=== PATIENT | male | born 1975 | race Hispanic/Latino ===

== ENCOUNTER 2018-05-03 12:26 | Emergency (ER) | payer OTHER ==
[2018-05-03] MEDS ORDERED: ONDANSETRON 4 MG/2 ML VIAL ONE (13:01)
[2018-05-03] MEDS ORDERED: MECLIZINE HCL 12.5 MG TAB ONE (13:01)
[2018-05-03 13:41] LABS: Absolute Lymphocytes (CBC) 1.7 K/uL (0.7-4.9); Absolute Monocytes 0.8 K/uL (0.1-1.3); Absolute Neutrophil 9.3 K/uL (1.8-8.0); Basophils % 0.5 % (0-1.3); Eosinophils % 0.2 % (0-4.4); Hematocrit 46.8 % (39.6-49.0); MCH 27.7 pg (27.0-35.0); MCV 85.5 fL (80-100); MPV 9.5 fL (7.6-11.3); Monocytes % 7.1 % (3.3-12.3); RBC Red Blood Cell Count 5.48 M/uL (4.33-5.43)
[2018-05-03 13:45] LABS: Protime INR 1.09
[2018-05-03 14:00] LABS: Albumin 4.4 g/dL (3.4-5.0); Bilirubin Direct 0.1 mg/dL (0-0.2); Bilirubin Total 0.8 mg/dL (0.2-1.0); Magnesium 2.2 mg/dL (1.8-2.4); Potassium 4.2 mmol/L (3.5-5.1); Protein, Total 8.7 g/dL (6.4-8.2)
--- NOTE | 2018-05-03 14:24 | RAD REPORT ---
EXAM DESCRIPTION: RAD - Chest Single View - 05/03/2018 2:09 pm CLINICAL HISTORY: dizziness;SOB Chest pain. COMPARISON: <Comparisons> FINDINGS: Portable technique limits examination quality. The lungs are grossly clear. The heart is normal in size. No displaced fractures. IMPRESSION: No acute intrathoracic process suspected.
[2018-05-03] MEDS ORDERED: NA CHLORIDE 0.9% 1,000 ML ONE (14:54)
--- NOTE | 2018-05-03 14:59 | EDPHYS ---
Physician Documentation [facility] Name: Skip Duckworth Age: 43 yrs Sex: Male : 1975 Arrival Date: 05/03/2018 Time: 12:28 Bed 16 Private MD: Out, [facility] ED Physician Orlando Acosta HPI: 05/03 12:51 This 43 yrs old Male presents to ER via Ambulatory with complaints of cp Breathing Difficulty. Historical: - Allergies: 12:35 No Known Allergies; lk1 - PMHx: 12:35 High Cholesterol; lk1 - PSHx: 12:35 Carpal Tunnel Repair; lk1 - Immunization history:: Adult Immunizations up to date. - Social history:: Smoking status: Patient/guardian denies using tobacco. - Ebola Screening: : No symptoms or risks identified at this time. ROS: 15:57 Constitutional: Negative for body aches, chills, fever, poor PO intake. cp 15:57 Eyes: Negative for injury, pain, redness, and discharge. cp 15:57 ENT: Negative for drainage from ear(s), ear pain, sore throat, difficulty swallowing, difficulty handling secretions. 15:57 Cardiovascular: Negative for chest pain, edema, palpitations. 15:57 Respiratory: Positive for shortness of breath, Negative for cough, wheezing. 15:57 Abdomen/GI: Negative for abdominal pain, vomiting, diarrhea, constipation, black/tarry stool, rectal bleeding. 15:57 Back: Negative for pain at rest, pain with movement, radiated pain. 15:57 Neuro: Positive for dizziness, Negative for altered mental status, headache, syncope, near syncope, weakness. 15:57 All other systems are negative. Exam: 13:08 Constitutional: The patient appears in no acute distress, alert, awake, cp non-diaphoretic, non-toxic, well developed, well nourished, uncomfortable. 13:08 Head/Face: Normocephalic, atraumatic. cp 13:08 Eyes: Periorbital structures: appear normal, Pupils: equal, round, and reactive to light and accomodation, Extraocular movements: intact throughout, Conjunctiva: normal, no exudate, no injection, Sclera: no appreciated abnormality, Lids and lashes: appear normal, bilaterally. 13:08 ENT: External ear(s): are unremarkable, Ear canal(s): are normal, clear, TM's: bulging, is not appreciated, bilaterally, dullness, bilaterally, erythema, is not appreciated, bilaterally, Nose: is normal, Mouth: Lips: moist, Oral mucosa: pink and intact, moist, Posterior pharynx: is normal, airway is patent, no erythema, no exudate. 13:08 Neck: ROM/movement: is normal, is supple, without pain, no range of motions limitations, no meningismus, no nuchal rigidity, Lymph nodes: no appreciated lymphadenopathy. 13:08 Chest/axilla: Inspection: normal, Palpation: is normal, no crepitus, no tenderness. 13:08 Cardiovascular: Rate: normal, Rhythm: regular, Pulses: Pulses are 2+ in right radial artery and left radial artery. Heart sounds: murmur, not appreciated, rub, not appreciated, gallop, not appreciated, Edema: is not appreciated, JVD: is not appreciated. 13:08 Respiratory: the patient does not display signs of respiratory distress, Respirations: normal, no use of accessory muscles, no retractions, no splinting, no tachypnea, Breath sounds: are clear throughout, no decreased breath sounds, no stridor, no wheezing. 13:08 Abdomen/GI: Inspection: obese Bowel sounds: active, all quadrants, Palpation: abdomen is soft and non-tender, in all quadrants, rebound tenderness, is not appreciated, voluntary guarding, is not appreciated, involuntary guarding, is not appreciated. 13:08 Back: pain, is absent, ROM is normal. 13:08 Skin: cellulitis, is not appreciated, no rash present. 13:08 Neuro: Orientation: to person, place \T\ time. Mentation: is normal, Cerebellar function: is grossly normal, Motor: moves all fours, strength is normal, Sensation: no obvious gross deficits. 13:42 ECG was reviewed by the Attending Physician. cp Vital Signs: 12:35 BP 148 / 100; Pulse 99; Resp 18; Temp 97.1(TE); Pulse Ox 98% on R/A; Weight 113.4 kg lk1 (R); Height 5 ft. 7 in. (170.18 cm) (R); Pain 0/10; 13:55 BP 143 / 92 RA Supine (auto/lg); Pulse 81 MON; Resp 20; Pulse Ox 99% ; jp3 14:00 BP 137 / 90 RA Sitting (auto/lg); Pulse 80 MON; Resp 19 S; Pulse Ox 100% ; jp3 14:05 BP 127 / 93 RA Standing (auto/lg); Pulse 82 MON; Resp 19 S; Pulse Ox 100% ; jp3 15:00 BP 129 / 89; Pulse 97; Resp 19; Pulse Ox 100% on R/A; rb1 12:35 Body Mass Index 39.16 (113.40 kg, 170.18 cm) lk1 MDM: 12:40 Patient medically screened. cp 13:00 Differential diagnosis: Anemia asthma, pneumonia, Unstable Angina cardiac arrythmia, cp electrolyte abnormality, dehydration, anxiety. 14:55 Data reviewed: vital signs, nurses notes, lab test result(s), EKG, radiologic studies, cp plain films, and as a result, I will discharge patient. ED course: VSS. Patient reports he is feeling better. 14:55 Test interpretation: by ED physician or midlevel provider: ECG, plain radiologic cp studies. 14:55 Counseling: I had a detailed discussion with the patient and/or guardian regarding: the cp historical points, exam findings, and any diagnostic results supporting the discharge/admit diagnosis, lab results, radiology results, the need for outpatient follow up, a family practitioner, to return to the emergency department if symptoms worsen or persist or if there are any questions or concerns that arise at home. Response to treatment: the patient's symptoms have markedly improved after treatment, and as a result, I will discharge patient. 05/03 12:50 Order name: Ckmb; Complete Time: 14:29 05/03 12:50 Order name: CPK; Complete Time: 14:29 cp 05/03 14:29 Interpretation: Abnormal: CPK 346. 05/03 12:50 Order name: Basic Metabolic Panel; Complete Time: 14:29 05/03 14:29 Interpretation: Normal except: GFR 81. 05/03 12:50 Order name: CBC with Diff; Complete Time: 13:59 05/03 13:59 Interpretation: Normal except: WBC 11.9; RBC 5.48; JAGDEEP% 78.2; LYM% 14.0; NEUT A 9.3. 05/03 12:50 Order name: LFT's; Complete Time: 14:29 05/03 14:29 Interpretation: Normal except: AST 73; ALT 100; TP 8.7; GLOB 4.3; A/G 1.0. cp 05/03 12:50 Order name: Magnesium; Complete Time: 14:29 cp 05/03 12:50 Order name: NT PRO-BNP; Complete Time: 14:29 cp 05/03 12:50 Order name: PT-INR; Complete Time: 13:59 cp 05/03 12:50 Order name: Ptt, Activated; Complete Time: 13:59 cp 05/03 12:50 Order name: Troponin (emerg Dept Use Only); Complete Time: 13:59 cp 05/03 13:59 Interpretation: Within normal limits: TROPED < 0.02. cp 05/03 12:50 Order name: XRAY Chest (1 view); Complete Time: 14:29 cp 05/03 13:56 Order name: Urine Dipstick--Ancillary (enter results) em1 05/03 12:50 Order name: Orthostatics; Complete Time: 14:15 cp 05/03 12:50 Order name: EKG; Complete Time: 12:51 cp 05/03 12:50 Order name: Cardiac monitoring; Complete Time: 13:24 cp 05/03 12:50 Order name: EKG - Nurse/Tech; Complete Time: 14:15 cp 05/03 12:50 Order name: IV Saline Lock; Complete Time: 13:23 cp 05/03 12:50 Order name: Labs collected and sent; Complete Time: 13:23 cp 05/03 12:50 Order name: O2 Per Protocol; Complete Time: 13:23 cp 05/03 12:50 Order name: O2 Sat Monitoring; Complete Time: 13:23 cp 05/03 12:50 Order name: Urine Dipstick-Ancillary (obtain specimen); Complete Time: 13:52 cp EC:42 Rate is 86 beats/min. Rhythm is regular. LA interval is normal. QRS interval is normal. cp QT interval is normal. Interpreted by me. Reviewed by me. Administered Medications: 13:10 Drug: Meclizine 25 mg Route: PO; rb1 13:30 Follow up: Response: No adverse reaction rb1 13:23 Drug: Zofran 4 mg Route: IVP; Site: left forearm; rb1 13:40 Follow up: Response: No adverse reaction rb1 14:55 Not Given (Provider discretion): NS 0.9% 1000 ml IV at 1 bolus Per protocol; 1000 mL rb1 bolus Disposition: 18:33 Co-signature as Attending Physician, Orlando Acosta MD. Disposition: 05/03/18 14:59 Discharged to Home. Impression: Dizziness. - Condition is Stable. - Discharge Instructions: Dizziness. - Prescriptions for Meclizine 25 mg Oral Tablet - take 1 tablet by ORAL route every 8 hours As needed; 30 tablet. Zofran 4 mg Oral Tablet - take 1 tablet by ORAL route every 12 hours As needed; 20 tablet. - Medication Reconciliation Form, Thank You Letter, Antibiotic Education, Prescription Opioid Use form. - Follow up: Private Physician; When: 1 - 2 days; Reason: Recheck today's complaints. - Problem is new. - Symptoms have improved. Signatures: Dispatcher [employer] EDMS Eliazar Arauz PA PA cp Barber, Rebecca, RN RN rb1 Jessica Min RN RN lk1 Orlando Acosta MD MD Corrections: (The following items were deleted from the chart) 15:15 14:59 05/03/2018 14:59 Discharged to Home. Impression: Dizziness. Condition is Stable. rb1 Forms are Medication Reconciliation Form, Thank You Letter, Antibiotic Education, Prescription Opioid Use. Follow up: Private Physician; When: 1 - 2 days; Reason: Recheck today's complaints. Problem is new. Symptoms have improved. cp
--- NOTE | 2018-05-03 14:59 | ER ---
Nurse's Notes [facility] Name: Skip Duckworth Age: 43 yrs Sex: Male : 1975 Arrival Date: 05/03/2018 Time: 12:28 Bed 16 Private MD: Out, [facility] Diagnosis: Dizziness Presentation: 05/03 12:34 Presenting complaint: states: "Hes been feeling bad this morning, like he can't lk1 breath properly.". Transition of care: patient was not received from another setting of care. Onset of symptoms was May 03, 2018 at 09:00. Risk Assessment: Do you want to hurt yourself or someone else? Patient reports no desire to harm self or others. Initial Sepsis Screen: Does the patient meet any 2 criteria? No. Patient's initial sepsis screen is negative. Does the patient have a suspected source of infection? No. Patient's initial sepsis screen is negative. Care prior to arrival: None. 12:34 Method Of Arrival: Ambulatory lk1 12:34 Acuity: KAROLYN 3 lk1 Triage Assessment: 12:40 Respiratory: the patient has mild shortness of breath. rb1 12:40 Respiratory: Reports shortness of breath since this morning. rb1 15:13 Respiratory: Onset: The symptoms/episode began/occurred. rb1 Historical: - Allergies: 12:35 No Known Allergies; lk1 - PMHx: 12:35 High Cholesterol; lk1 - PSHx: 12:35 Carpal Tunnel Repair; lk1 - Immunization history:: Adult Immunizations up to date. - Social history:: Smoking status: Patient/guardian denies using tobacco. - Ebola Screening: : No symptoms or risks identified at this time. Screenin:40 Abuse screen: Denies threats or abuse. Nutritional screening: No deficits noted. rb1 Tuberculosis screening: No symptoms or risk factors identified. Fall Risk None identified. Assessment: 12:40 General: Appears uncomfortable, obese, Behavior is calm, cooperative, Denies fever. rb1 Neuro: Level of Consciousness is awake, alert, obeys commands, Oriented to person, place, time, situation. Cardiovascular: Capillary refill < 3 seconds is brisk in bilateral fingers. Respiratory: Airway is patent Respiratory effort is even, unlabored, Respiratory pattern is regular, symmetrical, Breath sounds are clear bilaterally. GI: No signs and/or symptoms were reported involving the gastrointestinal system. : No signs and/or symptoms were reported regarding the genitourinary system. Derm: Skin is dry, Skin is normal, Skin temperature is warm. 12:40 Pain: Denies pain. Cardiovascular: Rhythm is regular. rb1 13:40 Reassessment: Patient appears in no apparent distress at this time. No changes from rb1 previously documented assessment. 14:35 Reassessment: Patient appears in no apparent distress at this time. Patient and/or rb1 family updated on plan of care and expected duration. Pain level reassessed. Patient is alert, oriented x 3, equal unlabored respirations, skin warm/dry/pink. Patient states feeling better. Vital Signs: 12:35 BP 148 / 100; Pulse 99; Resp 18; Temp 97.1(TE); Pulse Ox 98% on R/A; Weight 113.4 kg lk1 (R); Height 5 ft. 7 in. (170.18 cm) (R); Pain 0/10; 13:55 BP 143 / 92 RA Supine (auto/lg); Pulse 81 MON; Resp 20; Pulse Ox 99% ; jp3 14:00 BP 137 / 90 RA Sitting (auto/lg); Pulse 80 MON; Resp 19 S; Pulse Ox 100% ; jp3 14:05 BP 127 / 93 RA Standing (auto/lg); Pulse 82 MON; Resp 19 S; Pulse Ox 100% ; jp3 15:00 BP 129 / 89; Pulse 97; Resp 19; Pulse Ox 100% on R/A; rb1 12:35 Body Mass Index 39.16 (113.40 kg, 170.18 cm) lk1 ED Course: 12:28 Patient arrived in ED. sb2 12:28 Out, of Town is Private Physician. sb2 12:35 Triage completed. lk1 12:37 Arm band placed on right wrist. lk1 12:39 Eliazar Arauz PA is PHCP. cp 12:39 Orlando Acosta MD is Attending Physician. cp 12:40 Patient has correct armband on for positive identification. Bed in low position. Call rb1 light in reach. Side rails up X 1. shelter monitor on. Pulse ox on. NIBP on. 12:56 Jasmyn Yarbrough, RN is Primary Nurse. rb1 13:05 Missed attempt(s): 22 gauge in left forearm. jp3 13:15 Initial lab(s) drawn, by ny, sent to lab. Inserted saline lock: 22 gauge in left jp3 forearm, using aseptic technique. Blood collected. 13:30 Urine collected: clean catch specimen, clear, elyse colored, EKG done, by ED staff, jp3 reviewed by Eliazar BECKMAN. 14:09 X-ray completed. Portable x-ray completed in exam room. Patient tolerated procedure la2 well. 14:09 XRAY Chest (1 view) In Process Unspecified. EDMS 15:13 Removal of peripheral IV. Catheter intact, dressing applied. jp3 15:14 No provider procedures requiring assistance completed. IV discontinued, intact, rb1 bleeding controlled, No redness/swelling at site. Pressure dressing applied. Administered Medications: 13:10 Drug: Meclizine 25 mg Route: PO; rb1 13:30 Follow up: Response: No adverse reaction rb1 13:23 Drug: Zofran 4 mg Route: IVP; Site: left forearm; rb1 13:40 Follow up: Response: No adverse reaction rb1 14:55 Not Given (Provider discretion): NS 0.9% 1000 ml IV at 1 bolus Per protocol; 1000 mL rb1 bolus Outcome: 14:59 Discharge ordered by . cp 15:14 Discharged to home ambulatory, with family. rb1 15:14 Condition: stable 15:14 Discharge instructions given to patient, Instructed on discharge instructions, follow up and referral plans. medication usage, Demonstrated understanding of instructions, follow-up care, medications, Prescriptions given X 2. 15:15 Patient left the ED. rb1 Signatures: Dispatcher [employer] EDFL Eliazar Arauz PA PA cp Barber, Rebecca, RN RN rb1 Jessica Min RN RN lk1 Kim Leiva la2 Rafia Clement sb2 Devyn Gonzales jp3
[2018-05-03 15:28] LABS: Urine Blood NEGATIVE (NEG); Urine Glucose NEGATIVE (NEG); Urine Protein 2+ (NEG); Urine Specific Gravity >1.030 (1.005-1.030); Urine pH 6.5 (5.0-7.0)
--- NOTE | 2018-05-03 21:59 | EKG ---
Test Date: 2018-05-03 Test Time: 13:35:17 Poolroom/Poolhall Manager: ADEN MEASUREMENT RESULTS: Intervals: Rate: 86 DC: 164 QRSD: 88 QT: 376 QTc: 449 Beulah: P: 40 DC: 164 QRS: 34 T: 19 INTERPRETIVE STATEMENTS: Normal sinus rhythm with sinus arrhythmia Normal ECG No previous ECG available for comparison Electronically Signed On 05-03-18 21:58:48 CDT by Boby Egan
== END 2018-05-03 15:15 | disposition home or self-care (01) ==
LOC: ER 12:26
DX: R42 Dizziness and giddiness (principal); E78.00 Pure hypercholesterolemia, unspecified
CPT/HCPCS: 36415; 71045; 80048; 80076; 81003; 82550; 82553; 83735; 83880; 84484; 85025; 85610; 85730; 93005; 96374; 99285; J2405; J7030